=== PATIENT | female | born 1935 | race Caucasian/White ===

== ENCOUNTER 2018-10-10 07:45 | Inpatient (IN) | payer MEDICARE, OTHER, SELFPAY ==
--- NOTE | 2018-09-29 05:51 | PCM.HP.BLA ---
History and Physical Patient Name: Norma Valdez : 1935 From: YASEMIN LOVELACE PA-C DATE OF SURGERY: 10/10/2018 SCHEDULED PROCEDURE: revision left total hip arthroplasty HISTORY OF PRESENT ILLNESS: Preoperative history and physical exam was performed on September 28, 2018. This is an 82-year-old female who underwent a previous surgery and February 02, 2018 with a left total hip arthroplasty secondary to a femoral neck fracture. Surgery was performed by Dr. Nicholas Ta. Patient continues to have difficulty postoperatively with a limping gait and weakness in the left leg. She feels her activities of daily living have been significantly affected and now she has required to use a cane. She has been through formal physical therapy. She does have shortness in the lower extremity. Patient has a considerable limp secondary to the shortened left lower extremity. She has required to use a cane now. She denies any recent fevers, chills, recent infections. Patient has medical history pertinent for chronic obstructive pulmonary disease, hypertension, previous blood clot. After discussion with Dr. Nicholas Ta, the patient would like to proceed with a revision left total hip arthroplasty. We have obtain surgical clearance from patient's primary care physician. REVIEW OF SYSTEMS: ROS: Const: Denies change in appetite, fever and weight change. CV: Denies chest pain, heart murmur and irregular heartbeat. Resp: Denies cough, pneumonia, shortness of breath, tuberculosis and wheezing. GI: Denies constipation, diarrhea, heartburn, nausea, rectal itching, bloody stools and vomiting. : Denies incontinence. Musculo: Reports leg swelling, but denies pain, trouble walking and weakness. Skin: Denies Raynaud's, history of shingles and tattoo. Neuro: Denies ambulatory dysfunction, dizziness, numbness/tingling and tremor. Psych: Denies anxiety, insomnia and stress. David/Lymph: Denies anemia, bleeding/bruising tendency and past transfusion. Reviewed, no changes. PAST MEDICAL HISTORY: Advance Care Plan: No Advance Directives Effective Date: 02/16/2018 PMH: Medical Problems: Arthritis, Hard of Hearing, High Blood Pressure, Chornic Obstructive Pulmonary Disease (COPD) Brain Aneurysm - Multiple small Accidents: LT Hip FX - (01/2018) Fracture - RT Arm Collar Bone FX - (2004) RT Small Finger FX Surgical Hx: LT THR - (02/02/2018) SAW @ [facility] Appendectomy - (1990) Anesthesia Complications: None Assistive Devices: Dentures, Glasses, Cane Reviewed and updated. SOCIAL HISTORY: SH: Marital: .Occupation: Not Currently Working.Work Status: Not Working Currently.Hand Dominance: Ambidextrous. Personal Habits: Cigarette Use: Former.Smokeless Tobacco: Never Used Smokeless Tobacco.E-Cigarette Use: Never used.Alcohol: Occasionally.Drug Use: Denies Use.Enjoy Exercising: Exercises 1-3 x/month. Reviewed and updated. VITALS: Ht: 60 Wt: 172lb Wt k.019 BMI: 33.6 BP: 142/86 Pulse: 88 Resp: 16 T: 98.6 T: 37.0C ALLERGIES: Vicodin MEDICATIONS: Losartan Potassium 50 mg 1po bid, Vitamin B12 TR 1000 mcg 1po qday, Zantac 150 Maximum Strength 150 mg 1po qday, Calcium 600+D 600-200 MG-Unit 1 pill per day by mouth, Bee Pollen 500 mg 1 tab daily, Aleve 220 mg as needed PRE-OP EXAM: General appearance:NORMAL Other: Eyes: Conjunctivae and lids: NORMAL Pupils: ERR Ears, Nose, Mouth, and Throat: NORMAL Other: Inspection of lips, teeth and gums: NORMAL Other: Neck: Examination of neck: no masses noted. Respiratory: Assessment of respiratory effort: NORMAL Other: Auscultation of lungs: clear to auscultation no wheezes, rhonchi or rales. Cardiovascular: Auscultation of heart: regular rate and rhythm, no murmurs, gallops or rubs. Gastrointestinal: Exam of abdomen: soft, nontender, nondistended bowel sounds present. PHYSICAL EXAMINATION: On exam patient walks with a Trendelenburg lurch with a cane. Previous left hip incision is well healed without any erythema or signs of infection. Patient has an 8 mm leg length discrepancy with the operative side being shorter than the nonoperative side. Patient has no thigh pain or groin pain. Sensation intact to light touch. Neurovascularly intact. IMAGING STUDIES: Previous x-rays of the left hip reveal stable femoral and acetabular implants. The femoral implant appears to have subsided into a stable position. This is caused loss of offset and shortening of the left lower extremity. IMPRESSION: 1. Subsided left femoral component from a previous left total hip arthroplasty 2. Chronic obstructive pulmonary disease 3. Hypertension 4. History of previous blood clot 5. History of brain aneurysms PLAN: Dr. Nicholas Ta did discuss and review with the patient all treatment options including surgical versus nonsurgical options. Patient does wish to proceed with the above-stated procedure. Potential risks, benefits, and complications of the procedure were discussed in detail including but not limited to , infection, nerve and blood vessel damage, persistent pain, numbness, tingling, paresthesias, blood clot, pulmonary embolism, and requirement for possible further surgery. The patient expressed full understanding and has no further questions for the doctor. Patient does agree to proceed with the above-stated procedure and has signed the surgery consent form. This dictation was created using voice recognition software. Phonetic and/or grammatical errors may exist.. ___ I have re-examined the patient. There are no clinical changes since date of exam. ___ See progress notes for changes. ___ Dictated on admission Date: Time: Signature:
[2018-10-02 15:21] VITALS: BP 116/64; PULSE 70; RESP 18; TEMP 36.8; O2SAT 97; BMI 33.4
[2018-10-10] VITALS (14 sets, daily range): BP systolic 105–134; BP diastolic 55–77; PULSE 60–95; RESP 16–18; TEMP 36.3–37.4; O2SAT 92–100; BMI 33.4
--- NOTE | 2018-10-10 06:46 | RAD_ITS ---
STUDY: X-RAY - PELVIS AND LEFT HIP REASON FOR EXAM: Female, 82 years old. Postop left total hip replacement TECHNIQUE: 2 views of the pelvis and hip. COMPARISON: Same day FINDINGS: Left hip arthroplasty with normal alignment. Postoperative changes in the adjacent soft tissues. Pelvic clips. No acute fractures are seen. Moderate right hip osteoarthritis. RAD/Hip Min 2 Views (Portable) IMPRESSION: Left hip arthroplasty with normal alignment. Electronically Signed: Mukesh Nieto MD at 12:30 EDT Tel , Service support ,
[2018-10-10] MEDS: Acetaminophen 500 MG Tablet 1000 MG PO ×3 (08:23→20:33)
[2018-10-10] MEDS: Celecoxib 200 MG Capsule 400 MG PO (08:24)
[2018-10-10] MEDS: Magnesium Sulfate 4gm/100mL 4 GM/100 ML IV.SOLN. IV (08:24)
[2018-10-10] MEDS: Gabapentin 600 MG Tablet PO (08:24)
[2018-10-10 08:31] LABS: Bedside Glucose 157 mg/dL (70-110)
[2018-10-10] MEDS: Lactated Ringers 1,000 ML 999 ML IV (08:36)
[2018-10-10] MEDS: Cefazolin 2 GM in 0.9% Normal Saline 100 ML IV (09:19)
--- NOTE | 2018-10-10 09:30 | RAD_ITS ---
STUDY: X-RAY - PELVIS AND LEFT HIP REASON FOR EXAM: Female, 82 years old. Postop TECHNIQUE: 1 views of the pelvis and hip. COMPARISON: None. FINDINGS: A single intraoperative image is presented. A partially imaged left hip arthroplasty is grossly normal in alignment. Pelvic clips. RAD/Hip 1 view with Pelvis IMPRESSION: As above. Electronically Signed: Mukesh Nieto MD at 13:17 EDT Tel , Service support ,
[2018-10-10] MEDS: Heparin 10,000 UNITS/10 ML Vial 10000 UNITS (09:45)
--- NOTE | 2018-10-10 11:07 | PCM.OPRPT ---
Report of Operation Date of Procedure: 10/10/18 Pre-Operative Diagnosis: Failed left total hip replacement, abductor dysfunction/leg length discrepancy Post-Operative Diagnosis: Failed left total hip replacement, abductor dysfunction/leg length discrepancy Surgery/Procedure Performed:: Revision left hip femoral component Description of Surgical Findings:: Stable hip, leg lengths equalized. Stem was well fixed. floor refinisher: Paz Isidro Type of Anesthesia:: Spinal Anesthesiologist: Linus Garay Special Medications: 2 g Ancef, 1 g TXA at incision, 1 g TXA closure, 10 mg Decadron, joint cocktail (5 mg Duramorph, 30 mL of 0.5% Ropivicaine, 1000 units of epinephrine, 30 mg of Toradol) Specimen's removed: Soft tissue specimen sent to microbiology Estimated Blood Loss (mL): 100 Fluids Replaced: 1400 mL crystalloid Description of Procedure: Components used: 1. Summit cobalt-chromium 36 mm, 10 mm femoral head Brief history operative indications: 82 yo f who had previous left total hip replacement with subsidence of the stem. The stem eventually in group. She had a residual limb from shortening of the abductors. After failing physical therapy we discussed revision total hip replacement in order to lengthen the limb. Risks and benefits of the procedure were discussed the patient including balance to blood loss, DVTs, PEs, neurovascular damage, infection, the risk of anesthesia including loss of life. Procedure: On the date of procedure the patient's L hip was marked in the preoperative area. Patient was then taken back to the operating room where anesthesia assumed control of the C-spine and airway and administered anesthetic. Patient was transferred to the operating table and placed in the supine position. The hips were placed at the break of the bed and a sacral bump was placed. The L lower extremity was then prepped out in a sterile fashion using chlorhexidine while the surgeon scrubbed. The PA was vital in the positioning of the patient. Upon reentering the room the L lower extremity was draped in the standard orthopedic fashion and the incision was marked. A timeout was called and everyone agreed upon the side, the site, the procedure be performed, antibody given, and patient's identity. At this time incision was made through skin using the previous incision, subcutaneous tissue, and fat down to fascia. The fascia was then incised and the TFL was teased off the previous fascia and then retracted laterally. A retractor was placed on the lateral border of the femoral neck. Attention was directed to the inferior portion of the approach and all crossing vessels were identified and appropriately coagulated. A retractor was then placed on the medial portion of the femoral neck. The anterior capsule was then cleared of all soft tissue and then H shaped capsulotomy was made. After exposing the joint we performed a inferior and superior synovectomy. Once adequate synovectomy was performed were able to dislocate the hip. Prior to dislocating the hip traction was placed on the left lower extremity and a bone tamp was used to dissociate the Carter taper femoral head and stem. We then externally rotated the leg dislocated hip. Ricardo was used to remove the femoral head. At this time the proximal femur was adequately exposed. We then were able to visualize the acetabulum. The acetabular component appeared to be well fixed and stable. We elected to leave the acetabular component alone unless we needed to help with lengthening. The wound was then copiously irrigated out with 6 L of normal saline under low-pressure lavage. We then sequentially trialed up to a 10 mm neck with a 36 mm head. With a 10 mm neck we had good stability and equal leg lengths. Live fluoroscopy was used to verify leg lengths and offset. Once were happy with this The trial components were then dislocated the proximal femur was again exposed and the trial head removed from the wound. The final components were verified and opened. The wound was copiously irrigated out with normal saline. The acetabulum was checked for any residual debris. The final components were placed and impacted. Traction and internal rotation were again used to reduce the hip. After adequate reduction the hip remained stable with appropriate leg lengths. The final components were once again checked with live fluoroscopy and were found to be satisfactory. Irricept lavage was used for 1 minute. The wound was then copiously irrigated with normal saline once more, and hemostasis was obtained. Closure was then done using #1 Vicryl runner to close the fascia. A 2-0 vicryl interuppted sutures were used to close the subcutaneous skin. A 3-0 Monocryl and Steri-Strips were used for final skin closure. A Silverlon dressing was placed. Patient was awakened by anesthesia and transferred to the [facility]. Patient was then transferred to the PACU for recovery. Postoperative plan: Patient will get 24 hours postop antibiotics. Patient will get in-house physical therapy and will be weight-bear as tolerated. Patient will follow up in office in 2 weeks for a wound check and x-rays. Grafts/Implants Used: Summit cobalt-chromium L fit V40, 36 mm +10 mm femoral head - Complications No intraoperative complications - Admit VTE Documentation VTE Present on Admission: No VTE Mechan Device Prophylaxis: SCD's, Thigh High ISSAC Hose VTE Pharm Prophylaxis ordered?: Yes
[2018-10-10] MEDS: Lactated Ringers 1,000 ML 125 ML IV ×2 (12:29→16:27)
--- NOTE | 2018-10-10 15:09 | CASEMGMT ---
Social Work Note Pt's family requesting to speak to this worker. SW met with pt, pt's daughter and JAYSON in room. Pt gave this worker permission to speak to her in front of her guest. SW introduced self and role at [facility]. PT is alert and orientated x3. Pt states that she lives alone in a one story home with 0 steps to enter. Pt states that she was previously independent with ADLs. PCP is Dr. Maude Sanchez and preferred pharmacy is [facility]. Substance Abuse Hx: Pt denied. Pt states used to smoke cigarettes but quit in 1999. Mental Health Hx: Pt denied. SW asked pt about discharge plans. Pt states that she would like to go to [facility] for short term rehabilitation. SW explained that PT/OT will have to work with pt to determine if SNF is appropriate. SW also explained Medicare guidelines and that pt will need three midnight stay, if medically necessary, for Medicare to pay for SNF. SW explained Medicare payment days at SNF. SW informed pt that this worker will send referral to [facility] once PT/OT notes are available. Pt and pt's family state understanding, denied additional needs or concerns at this time. SW placed transfer to ECF form on pt's chart. Plan: [facility] Monday pending acceptance Harini Rodriguez FLORAL DEPARTMENT SPECIALIST, [employer] PROFESSOR
[2018-10-10] MEDS: Ondansetron 4 MG/2 ML Vial IV (15:21)
[2018-10-10] MEDS: Cefazolin 1 GM/50 ML BAG IV (16:30)
[2018-10-10] MEDS: Senna/Docusate Sodium 1 Tablet 2 TABLET PO (20:32)
[2018-10-10] MEDS: Losartan Potassium 50 MG Tablet PO (20:33)
--- NOTE | 2018-10-10 22:40 | NURSING ---
This RN into room for staff assist. Jeison DONIS with patient in bathroom. Patient's dressing to hip bleeding. Patient assisted back to bed and pressure applied to hip with sandbag and ABD pad. After pressure applied no new bleeding noted. New dressing applied to hip and no new bleeding seen. Sand bag maintained to hip.
[2018-10-11] MEDS: Cefazolin 1 GM/50 ML BAG IV (00:39)
--- NOTE | 2018-10-11 01:01 | NURSING ---
Changed Mepilex dressing as it was leaking at the bottom due to not being sealed well. Replaced Mepilex and reinforced bottom with 2in silk tape. Incision only leaking at the very bottom.
[2018-10-11] MEDS: Lactated Ringers 1,000 ML 125 ML IV (01:06)
[2018-10-11 01:50] VITALS: BP 132/67; PULSE 62; RESP 16; TEMP 36.4; O2SAT 100
[2018-10-11 01:55] VITALS: PULSE 62
[2018-10-11 05:42] LABS: Hematocrit 29.6 % (37-47); Hemoglobin 8.4 g/dL (12.0-15.0); Mean Corp Hgb Conc 28.4 g/dL (32-36); Mean Corpuscular Hgb 22.2 pg (27.0-32.0); Mean Corpuscular Volume 78.1 fL (81-99); Mean Platelet Vol. 9.4 fl (6.2-12.0); Platelet Count 172 K/mm3 (150-450); RBC Distribution Width CV 17.5 % (11.6-14.6); RBC Distribution Width SD 49.6 fl (35.1-43.9); Red Blood Count 3.79 M/mm3 (4.2-5.4)
[2018-10-11 06:01] LABS: Anion Gap 8 (5-15); BUN 14 mg/dL (7-18); BUN/Creat Ratio 18.2 RATIO (10-20); Chloride 111 mmol/L (98-107); Creatinine, Serum 0.77 mg/dL (0.55-1.02); EST Glomerular Filtration Rate 76 mL/min (>60); Est Glom Filt Rate - Afr Amer 92 mL/min (>60); Estimated Creatinine Clearance 31.15 ml/min; Glucose 77 mg/dL (74-106); Potassium 4.1 mmol/L (3.5-5.1); Sodium Level 144 mmol/L (136-145)
[2018-10-11] MEDS: Acetaminophen 500 MG Tablet 1000 MG PO ×3 (06:03→21:14)
[2018-10-11] MEDS: 0.9% NaCl Peripheral Flush Adult/Peds IV ×2 (06:04→20:28)
[2018-10-11 07:50] VITALS: BP 120/59; PULSE 70; RESP 18; TEMP 36.5; O2SAT 96
--- NOTE | 2018-10-11 08:01 | PN.ORTHO_ITS ---
Subjective: The patient was sitting in bed upon examination. Patient denies any chest pain, shortness of breath, dizziness, lightheadedness, nausea or vomiting, or calf pain. Pain is controlled on medications. No adverse overnight events. Discussed case with nurse and states they have had to change dressing on 2 separate occasions due to drainage over the distal incision. Patient is currently on Xarelto for DVT prophylaxis due to previous history of blood clots. Objective: Vital signs stable and afebrile. Patient is able to plantarflex and dorsiflex actively. Sensation is intact to light touch to saphenous, sural, superficial and deep peroneal, and tibial distribution. Dressing is with saturation on 3 borders to the distal one third of the dressing. Dressing was removed and there is drainage at the apex of the distal incision. Steri-Strips have fallen off. Wound was cleaned and new Steri-Strips were placed. ABDs were placed over the incision and will continue to use sandbag while at rest. Negative Homans bilaterally, negative signs and symptoms of DVT. - Physical Exam General: Alert, Oriented x3, Cooperative, No apparent distress Vital Signs Temp Pulse Resp BP Pulse Ox 97.5 F L 62 16 132/67 H 100 10/11/18 01:50 10/11/18 01:55 10/11/18 01:50 10/11/18 01:50 10/11/18 01:50 Oxygen Flow Rate (L/min) 2 Oxygen Delivery Method Nasal Cannula Weight: 77.6 kg Body Mass Index (BMI) 33.4 Intake and Output for Last 24 Hours 10/09/18 10/10/18 10/11/18 23:59 23:59 23:59 Intake Total 2092.08 / 2492.08 2324.58 / 2324.58 Output Total 500 / 500 400 / 400 Balance 1592.08 / 1992.08 1924.58 / 1924.58 Laboratory Tests Past 24 Hrs 10/11/18 10/11/18 05:00 05:00 WBC 3.0 L RBC 3.79 L Hgb 8.4 L Hct 29.6 L MCV 78.1 L MCH 22.2 L MCHC 28.4 L RDW Std Deviation 49.6 H RDW Coeff of Rob 17.5 H Plt Count 172 MPV 9.4 Sodium 144 Potassium 4.1 Chloride 111 H Carbon Dioxide 25.0 Anion Gap 8 BUN 14 Creatinine 0.77 Estim Creat Clear Calc 31.15 Est GFR (MDRD) Af Amer 92 Est GFR (MDRD) Non-Af 76 BUN/Creatinine Ratio 18.2 Glucose 77 Calcium 8.0 L POC Glucose 10/10/ 08:20 POC Glucose 157 H Medical Necessity - Tobacco Use Smoking Status: Former smoker Assessment/Plan 1. S/P revision left total hip arthroplasty anterior approach POD #1 2. Continue Pain Medications: Tylenol and OxyIR 3. DVT Prophylaxis: Xarelto due to previous history of blood clots 4. PT/OT: Weightbearing as tolerated 5. Post operative anemia secondary to surgery/blood loss: H & H: 8.4/29.6, asymptomatic 6. Encouraged Incentive Spirometry 7. Postoperative drainage: Continue with ABDs and sandbag while at rest. New Steri-Strips were placed and we will continue to monitor. Patient may require placement of wound VAC if continued drainage on postoperative day #2. 8. Disposition: Patient will most likely need senior care facility upon discharge. Would appreciate input from physical therapy/Occupational Therapy. Patient would require 3 night stay. Patient did have a drop in white blood cell count today at 3.0 and came in preoperatively at 4.8. We will continue to monitor.
[2018-10-11] MEDS: Calcium Carb/Vitamin D 1 TABLET Tablet PO (08:09)
[2018-10-11] MEDS: Rivaroxaban 10 MG Tablet PO (08:09)
[2018-10-11] MEDS: Cyanocobalamin 500 MCG Tablet 1000 MCG PO (08:09)
[2018-10-11] MEDS: Senna/Docusate Sodium 1 Tablet 2 TABLET PO ×2 (08:09→21:15)
[2018-10-11] MEDS: Losartan Potassium 50 MG Tablet PO ×2 (08:09→21:14)
[2018-10-11] MEDS: Meloxicam 7.5 MG Tablet PO ×2 (08:10→21:15)
[2018-10-11] MEDS: Famotidine 20 MG Tablet PO (08:18)
--- NOTE | 2018-10-11 09:18 | CASEMGMT ---
Addendum entered by Harini Rodriguez 10/11/18 15:28: SW in to speak with pt. Pt states her daughter has been at [facility] already and left. SW explained that this worker just got out of a meeting. SW provided pt with list of area SNF that accept pt's insurance and explained that this worker is required to provide pt with list but reinforced pt that pt is able to discharge to [facility] Monday. Pt states understanding. Addendum entered by Harini Rodriguez 10/11/18 12:53: SW updated pt on acceptance to [facility] Monday. Pt states understanding, denied this worker call her daughter stating her daughter will be in later this afternoon. Addendum entered by Harini Rodriguez 10/11/18 10:31: SW received message from Nidia at [facility] stating they are able to accept pt Monday. Plan: [facility] Monday TERRELL Turner Original Note: Social Work Note SW faxed referral to [facility]. Plan: [facility] Monday pending acceptance TERRELL Turner
[2018-10-11] MEDS: Doxycycline 100 MG CAPSULE PO ×2 (11:02→21:15)
[2018-10-11 13:50] VITALS: BP 133/66; PULSE 85; RESP 18; TEMP 36.8; O2SAT 96
[2018-10-11 20:10] VITALS: BP 150/73; PULSE 75; RESP 18; TEMP 36.9; O2SAT 94
[2018-10-11] MEDS: Ketorolac 15 MG/ML Vial IV (20:28)
[2018-10-12 02:05] VITALS: BP 138/59; PULSE 67; RESP 18; TEMP 36.6; O2SAT 94
[2018-10-12] MEDS: Acetaminophen 500 MG Tablet 1000 MG PO ×3 (05:12→20:59)
[2018-10-12] MEDS: DiphenhydrAMINE 25 MG Capsule 50 MG PO (05:12)
[2018-10-12] MEDS: Rivaroxaban 10 MG Tablet PO (05:13)
[2018-10-12 05:36] LABS: Hematocrit 33.2 % (37-47); Hemoglobin 9.3 g/dL (12.0-15.0); Mean Corpuscular Hgb 21.3 pg (27.0-32.0); Mean Corpuscular Volume 76.1 fL (81-99); Mean Platelet Vol. 9.6 fl (6.2-12.0); Platelet Count 251 K/mm3 (150-450); RBC Distribution Width CV 17.4 % (11.6-14.6); RBC Distribution Width SD 47.6 fl (35.1-43.9); Red Blood Count 4.36 M/mm3 (4.2-5.4); White Blood Count 5.3 K/mm3 (4.4-11.0)
--- NOTE | 2018-10-12 06:22 | PN.ORTHO_ITS ---
Subjective: The patient was sitting in bedside chair upon examination. Patient denies any chest pain, shortness of breath, dizziness, lightheadedness, nausea or vomiting, or calf pain. Pain is controlled on medications. No adverse overnight events. Overall patient is done well. She did have drainage yesterday in which dressing was switched over to ABDs. Patient states they have not needed to change her dressing and they were using the sand bag yesterday. She has been up tolerating therapy. There is no breakthrough drainage on the dressing. Plan is for discharge to [facility] tomorrow. Objective: Vital signs stable and afebrile. Patient is able to plantarflex and dorsiflex actively. Sensation is intact to light touch to saphenous, sural, superficial and deep peroneal, and tibial distribution. Dressing is currently dry and intact without any breakthrough drainage Negative Homans bilaterally, negative signs and symptoms of DVT. - Physical Exam General: Alert, Oriented x3, Cooperative, No apparent distress Vital Signs Temp Pulse Resp BP Pulse Ox 97.8 F 67 18 138/59 H 94 10/12/18 02:05 10/12/18 02:05 10/12/18 02:05 10/12/18 02:05 10/12/18 02:05 Oxygen Flow Rate (L/min) 2 Oxygen Delivery Method Room Air Weight: 77.6 kg Body Mass Index (BMI) 33.4 Intake and Output for Last 24 Hours 10/10/18 10/11/18 10/12/18 23:59 23:59 23:59 Intake Total 2092.08 / 2492.08 3544.58 / 3544.58 Output Total 500 / 500 700 / 700 Balance 1592.08 / 1992.08 2844.58 / 2844.58 Microbiology Past 72 Hours 10/10/18 Unknown Gram Stain - Final Tissue - Hip Wound Culture - Preliminary No growth-Final to follow Laboratory Tests Past 24 Hrs 10/12/18 05:06 WBC 5.3 RBC 4.36 Hgb 9.3 L Hct 33.2 L MCV 76.1 L MCH 21.3 L MCHC 28.0 L RDW Std Deviation 47.6 H RDW Coeff of Rob 17.4 H Plt Count 251 MPV 9.6 Medical Necessity - Tobacco Use Smoking Status: Former smoker Assessment/Plan 1. S/P revision left total hip arthroplasty anterior approach POD #2 2. Continue Pain Medications: Tylenol and OxyIR 3. DVT Prophylaxis: Xarelto due to previous history of blood clots 4. PT/OT: Weightbearing as tolerated 5. Post operative anemia secondary to surgery/blood loss: H & H: 9.3/33.2, asymptomatic. Patient's white blood cell count is currently 5.3. 6. Encouraged Incentive Spirometry 7. Continue antibiotics while following cultures: Currently on doxycycline 8. Postoperative drainage: Continue with ABDs and sandbag while at rest. I would like patient to go through physical therapy this morning, the dressing should be changed after physical therapy and incision check. If there is no drainage we will place another Mepilex silver dressing over the incision. If patient is continuing to have drainage we will place order for wound VAC. 9. Disposition: Plan is for discharge to half-way facility at [facility] tomorrow. Patient will require 3 midnight stay. Overall patient is doing well.
[2018-10-12 07:08] VITALS: O2SAT 92
[2018-10-12] MEDS: Famotidine 20 MG Tablet PO (08:36)
[2018-10-12] MEDS: Meloxicam 7.5 MG Tablet PO ×2 (08:36→20:59)
[2018-10-12] MEDS: Calcium Carb/Vitamin D 1 TABLET Tablet PO (08:36)
[2018-10-12] MEDS: Cyanocobalamin 500 MCG Tablet 1000 MCG PO (08:37)
[2018-10-12] MEDS: Losartan Potassium 50 MG Tablet PO ×2 (08:37→20:59)
[2018-10-12] MEDS: Doxycycline 100 MG CAPSULE PO ×2 (08:37→20:59)
[2018-10-12] MEDS: Senna/Docusate Sodium 1 Tablet 2 TABLET PO ×2 (08:37→20:59)
[2018-10-12 08:44] VITALS: BP 154/76; PULSE 69; RESP 16; TEMP 36.3; O2SAT 96
--- NOTE | 2018-10-12 11:56 | CASEMGMT ---
Social Work SW spoke with Ivania Peoples RN and wound vac will not be required. Met with pt in room and pt continues to wish to go to [facility] at d/c. Pt stating her son will transport her to facility. Phone call to Nidia at [facility] and update provided. They are able to accept pt tomorrow. Clinical updates faxed. [id number] form completed in [facility] and faxed to [facility]. Green Sheet placed on pt chart for weekend d/c. Plan: [facility] SNF on Monday TERRELL Moralez
[2018-10-12 16:55] VITALS: BP 141/78; PULSE 73; RESP 14; TEMP 36.7; O2SAT 97
[2018-10-12] MEDS: oxyCODONE 5 MG Tablet 2.5 MG PO (20:58)
[2018-10-12 21:04] VITALS: BP 151/71; PULSE 76; RESP 18; TEMP 37; O2SAT 98
[2018-10-13 04:02] VITALS: BP 149/79; PULSE 73; RESP 18; TEMP 36.7; O2SAT 98
[2018-10-13] MEDS: Acetaminophen 500 MG Tablet 1000 MG PO (06:10)
[2018-10-13] MEDS: Rivaroxaban 10 MG Tablet PO (06:10)
[2018-10-13 06:48] VITALS: O2SAT 96
[2018-10-13 07:37] LABS: Hematocrit 33.2 % (37-47); Hemoglobin 9.5 g/dL (12.0-15.0); Mean Corp Hgb Conc 28.6 g/dL (32-36); Mean Corpuscular Hgb 21.7 pg (27.0-32.0); Mean Platelet Vol. 9.7 fl (6.2-12.0); Platelet Count 302 K/mm3 (150-450); RBC Distribution Width CV 17.7 % (11.6-14.6); RBC Distribution Width SD 47.2 fl (35.1-43.9); Red Blood Count 4.37 M/mm3 (4.2-5.4); White Blood Count 5.4 K/mm3 (4.4-11.0)
[2018-10-13 07:38] VITALS: BP 142/69; PULSE 85; RESP 16; TEMP 36.7; O2SAT 93
[2018-10-13] MEDS: Famotidine 20 MG Tablet PO (08:46)
[2018-10-13] MEDS: Calcium Carb/Vitamin D 1 TABLET Tablet PO (08:46)
[2018-10-13] MEDS: Doxycycline 100 MG CAPSULE PO (08:46)
[2018-10-13] MEDS: Senna/Docusate Sodium 1 Tablet 2 TABLET PO (08:46)
[2018-10-13] MEDS: Cyanocobalamin 500 MCG Tablet 1000 MCG PO (08:46)
[2018-10-13] MEDS: Losartan Potassium 50 MG Tablet PO (08:47)
[2018-10-13] MEDS: Meloxicam 7.5 MG Tablet PO (08:47)
--- NOTE | 2018-10-13 09:50 | PCM.PN.ORT ---
Subjective: The patient was sitting in bedside chair upon examination. Patient denies any chest pain, shortness of breath, dizziness, lightheadedness, nausea or vomiting, or calf pain. Pain is controlled on medications. No adverse overnight events. Patient is doing very well. Yesterday patient had dressing removed and incision was checked by the wound nurse. Patient no longer had any drainage and a new Mepilex dressing was placed. No wound VAC was needed. Objective: Vital signs stable and afebrile. Patient is able to plantarflex and dorsiflex actively. Sensation is intact to light touch to saphenous, sural, superficial and deep peroneal, and tibial distribution. Dressing is clean dry and intact. Negative Homans bilaterally, negative signs and symptoms of DVT. - Physical Exam General: Alert, Oriented x3, Cooperative, No apparent distress Vital Signs Temp Pulse Resp BP Pulse Ox 98.1 F 85 16 142/69 H 93 10/13/18 07:38 10/13/18 07:38 10/13/18 07:38 10/13/18 07:38 10/13/18 07:38 Oxygen Flow Rate (L/min) 2 Oxygen Delivery Method Room Air Weight: 77.6 kg Body Mass Index (BMI) 33.4 Intake and Output for Last 24 Hours 10/11/18 10/12/18 10/13/18 23:59 23:59 23:59 Intake Total 3544.58 / 3544.58 1000 / 1000 400 / 400 Output Total 700 / 700 400 / 400 Balance 2844.58 / 2844.58 600 / 600 400 / 400 Microbiology Past 72 Hours 10/10/18 Unknown Gram Stain - Final Tissue - Hip Wound Culture - Final No growth aerobically. Anaerobic Culture - Preliminary No growth in 48 hours. Laboratory Tests Past 24 Hrs 10/13/18 07:09 WBC 5.4 RBC 4.37 Hgb 9.5 L Hct 33.2 L MCV 76.0 L MCH 21.7 L MCHC 28.6 L RDW Std Deviation 47.2 H RDW Coeff of Rob 17.7 H Plt Count 302 MPV 9.7 Medical Necessity - Tobacco Use Smoking Status: Former smoker Assessment/Plan 1. S/P revision left total hip arthroplasty anterior approach POD #3 2. Continue Pain Medications: Tylenol and OxyIR 3. DVT Prophylaxis: Xarelto due to previous history of blood clots 4. PT/OT: Weightbearing as tolerated 5. Post operative anemia secondary to surgery/blood loss: H & H: 9.5/33.2, asymptomatic. Patient's white blood cell count is currently 5.4. 6. Encouraged Incentive Spirometry 7. Continue antibiotics while following cultures: Currently on doxycycline 8. Postoperative drainage: Patient has no longer had drainage and a new Mepilex dressing was placed yesterday. Dressing is clean dry and intact today 9. Disposition: Plan is for discharge to residential facility at [facility] today. Patient requires 3 midnight stay. Orthopedically stable, plan will be for discharge to residential facility today. Prescriptions will be attached to chart. Patient will follow-up per postop instructions.
--- NOTE | 2018-10-13 09:58 | DCINST_ITS ---
Discharge Diet: No Restrictions Discharge Activity: May Not Drive - while taking narcotic pain medications. May shower in (days): 1 - Turn dressing away from water Ice area for (Minutes): 20 - Every 1-2 hours while awake Weight Bearing Status: Weight bearing as tolerated Elevate: Operative Extremity Additional Activity Instructions:: Wear elastic stockings for 2 weeks. DO NOT use alcohol with narcotic pain medication. DO NOT make important decisions while taking narcotic medication. If you have problems with taking your medication (rash, itching, nausea, etc.) call the office at once. Call your doctor if your incision/area has: Increased Pain/ Swelling, Increased Redness, Foul Smelling Discharge Call your doctor if you observe: Fever of 101 or Higher Remove Dressing in (days):: 4 - Okay to remove dressing on October 17, 2018 Additional Instructions: Follow with [facility] postop instructions DVT prophylaxis: We will continue with Xarelto for 2 weeks postoperatively. After 2-week follow-up at [facility] on October 24, 2018 we will switch over to 81 mg aspirin twice daily for an additional 2 weeks Allergies/Adverse Reactions: Allergies hydrocodone [From Vicodin] Adverse Reaction (Verified 10/10/18 08:06) Other FELT LIKE PASSING OUT Medications to take at Discharge Calcium Carbonate/Vitamin D3 [Calcium 600 + Vit D Tablet] 1 ea PO DAILY 10/02/18 Cyanocobalamin (Vitamin B-12) [Vitamin B-12] 1,000 mcg PO DAILY 10/02/18 Losartan Potassium [Cozaar] 50 mg PO BID 10/02/18 Ranitidine [Zantac] 150 mg PO DAILY PRN 10/02/18 Acetaminophen [Tylenol] 1,000 mg PO Q8 14 Days tablet 10/13/18 Doxycycline 100 mg PO BID 5 Days capsule 10/13/18 Oxycodone [Oxyir] 5 mg PO Q4H PRN PRN 5 Days #30 tab 10/13/18 Rivaroxaban [Xarelto] 10 mg PO DAILY@0600 #11 tab 10/13/18 Senna/Docusate Sodium [Senokot-S] 2 tablet PO BID tablet 10/13/18 The following prescriptions were given: Oxycodone [Oxyir] 5 mg PO Q4H PRN PRN 5 Days #30 tab PRN Reason: Mod-Severe Pain (4-11/22) Prescription Printed Rivaroxaban [Xarelto] 10 mg PO DAILY@0600 #11 tab Prescription Printed Primary Care Physician: Maude Sanchez NP-C [Primary Care Provider] - Test Results: Test results from this visit will be discussed in further detail at your follow- up appointment, if applicable. Please Follow Up With: Arnie Nassar PA-C When: 10/24/18 @ 9:15 am
--- NOTE | 2018-10-13 10:05 | DS.PCM_ITS ---
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 Patient had significant shortening of the limb and abductors. Patient failed physical therapy and conservative measures in order to lengthen the limb. After failing conservative measures, the patient opted to proceed with a revision direct anterior approach left total hip arthroplasty. The patient underwent the above-stated procedure on October 10, 2018. Patient did receive perioperative antibiotics. Intraoperatively was uneventful. For details please see dictated operative note. The patient was placed in thigh-high teds, bilateral SCDs, remained stable in recovery. Patient was admitted to the 3rd floor at [facility]. The patient's pain was managed with the use of IV and p.o. pain medications. Patient participated in physical therapy. Patient did have postoperative drainage that was treated with compression. No wound VAC was needed and drainage stopped after postoperative day #2. Regular Mepilex dressing was placed. Patient was discharged on postoperative day #3 to longterm facility at [facility]. Patient was given medications stated below. Patient will follow up with [facility] per postop instructions for reassessment. - Physical Exam General: Alert, Oriented x3, Cooperative, No apparent distress Vital Signs Temp Pulse Resp BP Pulse Ox 98.1 F 85 16 142/69 H 93 10/13/18 07:38 10/13/18 07:38 10/13/18 07:38 10/13/18 07:38 10/13/18 07:38 Oxygen Flow Rate (L/min) 2 Oxygen Delivery Method Room Air Weight: 77.6 kg Body Mass Index (BMI) 33.4 Intake and Output for Last 24 Hours 10/11/18 10/12/18 10/13/18 23:59 23:59 23:59 Intake Total 3544.58 / 3544.58 1000 / 1000 400 / 400 Output Total 700 / 700 400 / 400 Balance 2844.58 / 2844.58 600 / 600 400 / 400 Microbiology Past 72 Hours 10/10/18 Unknown Gram Stain - Final Tissue - Hip Wound Culture - Final No growth aerobically. Anaerobic Culture - Preliminary No growth in 48 hours. Laboratory Tests Past 24 Hrs 10/13/18 07:09 WBC 5.4 RBC 4.37 Hgb 9.5 L Hct 33.2 L MCV 76.0 L MCH 21.7 L MCHC 28.6 L RDW Std Deviation 47.2 H RDW Coeff of Rob 17.7 H Plt Count 302 MPV 9.7 Discharge Diet: No Restrictions Discharge Activity: May Not Drive - while taking narcotic pain medications. May shower in (days): 1 - Turn dressing away from water Ice area for (Minutes): 20 - Every 1-2 hours while awake Weight Bearing Status: Weight bearing as tolerated Keep extremity elevated above heart level: Operative Extremity Additional Activity Instructions:: Wear elastic stockings for 2 weeks. DO NOT use alcohol with narcotic pain medication. DO NOT make important decisions while taking narcotic medication. If you have problems with taking your medication (rash, itching, nausea, etc.) call the office at once. Call your doctor if your incision/area has: Increased Pain/ Swelling, Increased Redness, Foul Smelling Discharge Call your doctor if you observe: Fever of 101 or Higher Remove Dressing in (days):: 4 - Okay to remove dressing on October 17, 2018 Home Medications: Medications to take at Discharge Calcium Carbonate/Vitamin D3 [Calcium 600 + Vit D Tablet] 1 ea PO DAILY 10/02/18 Cyanocobalamin (Vitamin B-12) [Vitamin B-12] 1,000 mcg PO DAILY 10/02/18 Losartan Potassium [Cozaar] 50 mg PO BID 10/02/18 Ranitidine [Zantac] 150 mg PO DAILY PRN 10/02/18 Acetaminophen [Tylenol] 1,000 mg PO Q8 14 Days tab 10/13/18 Doxycycline 100 mg PO BID 5 Days cap 10/13/18 Oxycodone [Oxyir] 5 mg PO Q4H PRN PRN 5 Days #30 tab 10/13/18 Rivaroxaban [Xarelto] 10 mg PO DAILY@0600 #11 tab 10/13/18 Senna/Docusate Sodium [Senokot-S] 2 tab PO BID tab 10/13/18 Following Prescrptions Were Given to Patient: Oxycodone [Oxyir] 5 mg PO Q4H PRN PRN 5 Days #30 tab PRN Reason: Mod-Severe Pain (4-11/22) Prescription Printed Rivaroxaban [Xarelto] 10 mg PO DAILY@0600 #11 tab Prescription Printed Primary Care Physician: Maude Sanchez NP-C [Primary Care Provider] - Please Follow Up With: Arnie Nassar PA-C When: 10/24/18 @ 9:15 am Additional Instructions: Follow with [facility] postop instructions DVT prophylaxis: We will continue with Xarelto for 2 weeks postoperatively. After 2-week follow-up at [facility] on October 24, 2018 we will switch over to 81 mg aspirin twice daily for an additional 2 weeks Medical Necessity - Tobacco Use Smoking Status: Former smoker Meaningful Use Info Meaningful Use Diagnoses (Choose all that apply): None applicable
--- NOTE | 2018-10-13 10:28 | NURSING ---
called report to [facility]. son notified per pt.
== END 2018-10-13 11:27 | disposition skilled nursing facility (03) | DRG 468 ==
LOC: ACINP 07:46 → MS3 08:09
PROVIDERS: Admitting Provider Specialist; Family Provider Nurse Practitioner Family; PCP Nurse Practitioner Family; Referring Provider Specialist; Visit Provider Specialist
PROC: 0SRS01A Replacement of Left Hip Joint, Femoral Surface with Metal Synthetic Substitute, Uncemented, Open Approach (ICD-10-PCS; principal; 2018-10-10 09:05)
DX: T84.89XA Other specified complication of internal orthopedic prosthetic devices, implants and grafts, initial encounter (principal); J44.9 Chronic obstructive pulmonary disease, unspecified; I10 Essential (primary) hypertension; Z96.642 Presence of left artificial hip joint; M21.70 Unequal limb length (acquired), unspecified site; I67.1 Cerebral aneurysm, nonruptured; Z87.891 Personal history of nicotine dependence; Z86.718 Personal history of other venous thrombosis and embolism
CPT/HCPCS: 36415; 73501; 73502; 76000; 80048; 82962; 85027; 87015; 87070; 87075; 87081; 87102; 87116; 87176; 87205; 87206; 94762; 97110; 97162; 97166; 97530; 97535; C1776; J7120; A4216; J2405